=== PATIENT | female | born 1990 | race Caucasian/White ===

== ENCOUNTER → 2019-05-03 | Outpatient (CLI) | payer BC | LOC: ULTRA 08:57 | DX: R10.10 Upper abdominal pain, unspecified (principal) ==

== ENCOUNTER → 2019-06-06 | Outpatient (CLI) | payer BC | LOC: NUC 09:34 | DX: R10.9 Unspecified abdominal pain (principal); R19.7 Diarrhea, unspecified ==

== ENCOUNTER → 2020-08-01 | Outpatient (CLI) | payer OTHER | LOC: MRI 14:19 | PROVIDERS: ATTEND Family Medicine | DX: G31.89 Other specified degenerative diseases of nervous system (principal); G40.A09 Absence epileptic syndrome, not intractable, without status epilepticus ==